=== PATIENT | female | born 1930 | race Caucasian/White ===

== ENCOUNTER → 2019-01-20 | Outpatient (CLI) | payer MEDICARE, MEDICAID ==
[2019-01-20 13:28] LABS: BG BASE EXCESS -3.2 mmol/L (-2.0-2.0); BG DEOXYHEMOGLOBIN 4.7 % (0.0-5.0); BG FRACTION INSPIRED OXYGEN 21; BG HCO3 ACT 19.6 mmol/L (22.0-26.0); BG METHEMOGLOBIN 0.3 % (0.0-1.5); BG OXYGEN SATURATION 95.2 % (92.0-98.5); BG PCO2 28.9 mmHg (35.0-45.0); BG PH 7.449 (7.350-7.450); BG PO2 77.1 mmHg (75.0-100.0); BG SAMPLE SITE LEFT RADIAL; BG VENT MODE ROOM AIR
== END | disposition home or self-care (01) ==
LOC: PF 12:41
PROVIDERS: ATTEND Internal Medicine Pulmonary Disease
DX: R06.09 Other forms of dyspnea (principal)
CPT/HCPCS: 36600; 82375; 82805

== ENCOUNTER 2020-03-20 22:13 | Inpatient (IN) | payer MEDICARE, MEDICAID ==
[~2020-03-20] VITALS: Ht 152.4 cm; Wt 45.4 kg
[2020-03-21] MEDS ORDERED: LEVOFLOXACIN 750MG PREMIX 150 ML IV ONE
[2020-03-21 01:31] LABS: CHLORIDE 87 mEq/L (98-107)
[2020-03-21 01:40] LABS: HEMATOCRIT. 37.2 % (36.0-48.0); HEMOGLOBIN. 12.1 g/dL (12.0-16.0); LYMPHOCYTES % 14.6 % (20.0-50.0); MEAN CORPUSCULAR HEMOGLOBIN 29.4 pg (28.0-32.0); MEAN PLATELET VOLUME 7.3 fl (7.4-10.4); NEUTROPHILS % 72.3 % (40.0-76.0); PLATELET 429 x1000/uL (130-400); RED BLOOD CELL COUNT 4.13 mill/uL (4.2-5.4); RED CELL DISTRIBUTION WIDTH 21.1 % (11.6-14.6)
[2020-03-21 01:41] LABS: BASOPHILS % 0.4 % (0.0-2.0); EOSINOPHILS % 0.5 % (0.0-5.0); MONOCYTES % 12.2 % (2.0-8.0)
[2020-03-21 01:54] LABS: INR 0.9; PARTIAL THROMBOPLASTIN TIME 31.1 sec (23.4-31.0)
[2020-03-21] MEDS ORDERED: MORPHINE SULFATE 2 MG/ML CPJ (NOT FOR IM USE) IV ONE (04:45)
[2020-03-21 05:51] LABS: CLARITY URINE CLEAR (CLEAR); COLOR URINE YELLOW (YELLOW); KETONES URINE NEGATIVE (NEGATIVE); LEUKOCYTE ESTERASE URINE 1+ (NEGATIVE); NITRITE URINE NEGATIVE (NEGATIVE); OCCULT BLOOD URINE NEGATIVE (NEGATIVE); PROTEIN URINE NEGATIVE (NEGATIVE); SPECIFIC GRAVITY URINE 1.011 (1.005-1.030); UROBILINOGEN URINE 0.2 E.U./dL (0.2-1.0)
[2020-03-21] MEDS ORDERED: ACETAMINOPHEN 325MG TABLET PO PRN (09:15)
[2020-03-21] MEDS ORDERED: METOCLOPRAMIDE HCL 10MG/2ML VIAL IV PRN (09:15)
[2020-03-21] MEDS ORDERED: CEFTRIAXONE 1 G PREMIX 50 ML IV ONE (09:30)
[2020-03-21] MEDS ORDERED: AZITHROMYCIN 500 MG TABLET PO ONE (09:30)
[2020-03-21] MEDS: SODIUM CHLORIDE 0.9% 1,000 ML IV SCH ×2 (09:52→23:28)
[2020-03-21 10:43] LABS: CHLORIDE 95 mEq/L (98-107)
[2020-03-21] MEDS ORDERED: BENZONATATE 100MG CAPSULE PO PRN (14:30)
[2020-03-21 16:30] VITALS: BP 130/80
[2020-03-21 18:38] LABS: BG BASE EXCESS -7.6 mmol/L (-2.0-2.0); BG CARBOXYHEMOGLOBIN 1.9 % (0.5-1.5); BG DEOXYHEMOGLOBIN 1.5 % (0.0-5.0); BG FRACTION INSPIRED OXYGEN 28; BG HCO3 ACT 12.8 mmol/L (22.0-26.0); BG METHEMOGLOBIN 0.2 % (0.0-1.5); BG OXYGEN SATURATION 98.5 % (92.0-98.5); BG OXYHEMOGLOBIN 96.4 % (94.0-97.0); BG PCO2 16.1 mmHg (35.0-45.0); BG PH 7.518 (7.350-7.450); BG PO2 109.7 mmHg (75.0-100.0); BG SAMPLE SITE RIGHT BRACHIAL; BG TOTAL HEMOGLOBIN 11.7 g/dL (12.0-18.0); BG VENT MODE NASAL CANNULA
[2020-03-21 20:00] VITALS: BP 140/76
[2020-03-21] MEDS ORDERED: PARO10TA74 MT (20:22)
[2020-03-22] VITALS: BP 140/76
[2020-03-22 00:46] LABS: SODIUM URINE RANDOM 46 mEq/L
[2020-03-22 04:00] VITALS: BP 139/60
[2020-03-22 08:00] VITALS: BP 96/45
[2020-03-22 08:16] LABS: HEMATOCRIT. 34.7 % (36.0-48.0); HEMOGLOBIN. 11.3 g/dL (12.0-16.0); MEAN CORPUSCULAR HEMOGLOBIN 29.2 pg (28.0-32.0); MEAN CORPUSCULAR VOLUME 89.8 fL (81.0-99.0); MEAN PLATELET VOLUME 7.5 fl (7.4-10.4); PLATELET 418 x1000/uL (130-400); RED BLOOD CELL COUNT 3.86 mill/uL (4.2-5.4); RED CELL DISTRIBUTION WIDTH 20.6 % (11.6-14.6)
[2020-03-22 08:25] LABS: CHLORIDE 100 mEq/L (98-107)
[2020-03-22 08:31] LABS: PHOSPHORUS 2.6 mg/dL (2.5-4.9)
[2020-03-22] MEDS: AZITHROMYCIN 250 MG TABLET PO SCH (08:45)
[2020-03-22] MEDS ORDERED: CEFTRIAXONE 1,000 MG in DEXTROSE 5% WATER 50 ML IV SCH (10:00)
[2020-03-22] MEDS ORDERED: POTASSIUM CHLORIDE INJ 40 MEQ in DEXT 5% WATER 250 ML IV SCH (11:00)
[2020-03-22] MEDS: SODIUM CHLORIDE 0.9% 1,000 ML IV SCH (11:55)
[2020-03-22 12:00] VITALS: BP_SYST 105; BP_SYST 126; BP_DIAS 52; BP_DIAS 77
[2020-03-22] MEDS: RISPERIDONE 0.5MG TABLET PO SCH (13:10)
[2020-03-22 13:20] LABS: PLATELET ESTIMATE INCREASED
[2020-03-22 16:00] VITALS: BP_SYST 105; BP_SYST 126; BP_DIAS 52; BP_DIAS 77
[2020-03-22] MEDS ORDERED: EZET10TA13 MT (17:41)
[2020-03-22] MEDS ORDERED: HYDR25TA MT (17:41)
[2020-03-22] MEDS ORDERED: BENJ IM (17:41)
[2020-03-22] MEDS ORDERED: BUSP10TA3 MT (17:41)
[2020-03-22] MEDS ORDERED: AMIT10TA6 MT (17:41)
[2020-03-22] MEDS ORDERED: METO-385 MT (17:41)
[2020-03-22] MEDS ORDERED: FERR-71 MT (17:41)
[2020-03-22] MEDS ORDERED: ASPI-1497 MT (17:41)
[2020-03-22] MEDS ORDERED: GEMF600T5 MT (17:41)
[2020-03-22] MEDS ORDERED: MULT-1146 MT (17:41)
[2020-03-22 20:00] VITALS: BP 122/38
[2020-03-23] VITALS: BP 102/36
[2020-03-23] MEDS: SODIUM CHLORIDE 0.9% 1,000 ML IV SCH (00:50)
[2020-03-23 04:00] VITALS: BP 160/75
[2020-03-23 08:00] VITALS: BP 147/52
[2020-03-23 08:06] LABS: HEMATOCRIT. 33.4 % (36.0-48.0); HEMOGLOBIN. 10.7 g/dL (12.0-16.0); MEAN CORPUSCULAR VOLUME 90.8 fL (81.0-99.0); MEAN PLATELET VOLUME 7.2 fl (7.4-10.4); PLATELET 410 x1000/uL (130-400); RED BLOOD CELL COUNT 3.68 mill/uL (4.2-5.4); RED CELL DISTRIBUTION WIDTH 20.4 % (11.6-14.6)
[2020-03-23 08:14] LABS: CHLORIDE 108 mEq/L (98-107)
[2020-03-23 08:20] LABS: PHOSPHORUS 2.2 mg/dL (2.5-4.9)
[2020-03-23] MEDS ORDERED: CEFTRIAXONE 1,000 MG in DEXTROSE 5% WATER 50 ML IV SCH ×2 (09:00→09:30)
[2020-03-23] MEDS: RISPERIDONE 0.5MG TABLET PO SCH (09:16)
[2020-03-23] MEDS: AZITHROMYCIN 250 MG TABLET PO SCH (09:16)
[2020-03-23] MEDS ORDERED: POTASSIUM-SODIUM PHOSPHATE POWDER PACKET PO NR (09:30)
[2020-03-23] MEDS ORDERED: POTASSIUM CHLORIDE 20MEQ TABLET SR PO NR (09:30)
[2020-03-23 10:27] LABS: PLATELET ESTIMATE INCREASED
[2020-03-23 12:00] VITALS: BP 150/53
[2020-03-23 14:35] VITALS: BP 142/53
== END 2020-03-23 15:12 | disposition home health service (06) | DRG 139 ==
LOC: ER 22:13 → 7EST 03-21 02:34 → ENRESERV 03-21 14:49 → 7EST 03-21 16:45 → 5WST 03-22 02:32
PROVIDERS: ADMIT Internal Medicine; ATTEND Internal Medicine
DX: J18.1 Lobar pneumonia, unspecified organism (principal); G93.41 Metabolic encephalopathy; E44.0 Moderate protein-calorie malnutrition; E87.2 Acidosis; E87.3 Alkalosis; E87.8 Other disorders of electrolyte and fluid balance, not elsewhere classified; E87.1 Hypo-osmolality and hyponatremia; E78.5 Hyperlipidemia, unspecified; F32.9 Major depressive disorder, single episode, unspecified; I10 Essential (primary) hypertension; D72.810 Lymphocytopenia; Z82.49 Family history of ischemic heart disease and other diseases of the circulatory system; Z87.440 Personal history of urinary (tract) infections; Z68.1 Body mass index [BMI] 19.9 or less, adult; Z03.818 Encounter for observation for suspected exposure to other biological agents ruled out; Z79.899 Other long term (current) drug therapy
CPT/HCPCS: 36415; 36600; 71045; 71250; 80048; 80053; 81003; 82375; 82530; 82805; 83605; 83735; 83880; 83935; 84100; 84145; 84300; 84439; 84443; 84484; 85025; 87077; 87186; 87635; 92610; 93005; 97162; 99285; J0696; J1956; J2270; J3480; J7060